=== PATIENT | female | born 1975 | race Hispanic/Latino ===

== ENCOUNTER 2025-03-13 22:14 | Emergency (ER) | payer SELFPAY ==
[2025-03-13] VITALS (8 sets, daily range): BP systolic 118–141; BP diastolic 84–88; PULSE 94–101; RESP 15–21; O2SAT 95–97
--- NOTE | ~2025-03-13 | CT_ITS ---
CT brain wo con Ordering provider: Aleksandra Chirinos MD History: 49 years Female with . weakness . Comparison: None. Technique: CT of the head without contrast. Radiation reduction technique utilized. The dose-length p roduct was 681 mGy-cm. FINDINGS: BRAIN PARENCHYMA AND CSF SPACES: No midline shift, mass effect or hemorrhage. The brain parenchyma a nd CSF spaces are otherwise normal. VISUALIZED PARANASAL SINUSES: Left maxillary sinus disease. MASTOIDS: Well aerated. BONES: The bones appear intact. SOFT TISSUES: Visualized nasopharynx is normal. Superficial soft tissues are normal. IMPRESSION: No acute intracranial findings. Reviewed, dictated and finalized at location A.
--- NOTE | ~2025-03-13 | XR_ITS ---
XR chest 1V portable Ordering provider: Aleksandra Chirinos MD History: 49 years Female with . chest pain WEAKNESS SOB . Comparison: None. FINDINGS: MEDIASTINUM: The cardiac silhouette is not enlarged. LUNGS: No effusions or pneumothorax. Opacification the lung bases more on the left side suggestive of pneumonia. OTHER: No free air under the diaphragm. IMPRESSION: Bibasilar pneumonia more on the left side. Reviewed, dictated and finalized at location A.
--- NOTE | 2025-03-13 22:37 | ECG_ITS ---
Test Date: 2025-03-13 22:41:21 Measurements Intervals [place] Rate: 95 P: 43 UT: 148 QRS: 23 QRSD: 84 T: 3 QT: 345 QTc: 434 Interpretive Statements SINUS RHYTHM DELAYED PRECORDIAL R/S TRANSITION BORDERLINE ST-T WAVE ABNORMALITY- ANT/INF LEADS BORDERLINE ECG No previous ECG available for comparison Electronically Signed On 03-14-2025 06:01:47 CDT by Ever Lee D.O.
[2025-03-13 23:13] LABS: Basophils Absolute Auto 0.1 K/mm3 (0.0-0.1); Basophils Percent Auto 0.4 % (0.2-1.2); Hematocrit 44.1 % (37.0-47.0); Hemoglobin 14.9 g/dL (12.0-15.0); Immature Granulocyte Absolute 0.05 K/mm3 (0.00-0.031); Immature Granulocyte Percent A 0.4 % (0-0.5); Lymphocytes Absolute Auto 1.32 K/mm3 (0.9-3.2); Lymphocytes Percent Auto 9.6 % (18.3-44.2); Mean Corpuscular HGB Conc 33.8 g/dl (32-36); Mean Corpuscular Hemoglobin 28.7 pg (26-34); Mean Platelet Volume 9.7 fl (7.4-10.4); Monocytes Absolute Auto 0.3 K/mm3 (0.1-0.6); Monocytes Percent Auto 2.2 % (2.6-8.5); Neutrophils Absolute Auto 12.1 K/mm3 (1.3-6.7); Neutrophils Percent Auto 87.4 % (45.5-73.1); Platelet Count Result 388 k/mm3 (150-375); Red Blood Count 5.19 M/mm3 (4.2-5.4); Red Cell Distribution Width 13.2 % (11.5-14.5); White Blood Count 13.8 K/mm3 (4.5-10.0)
[2025-03-13 23:21] LABS: Creatine Kinase 41 U/L (30-135); Magnesium 1.7 mg/dL (1.6-2.3)
[2025-03-13 23:22] LABS: Alanine Aminotransferase 42 U/L (6-35); Albumin Level 4.4 g/dL (3.5-5.1); Alkaline Phosphatase 133 U/L (38-126); Anion Gap 14 mmol/L (4-12); Aspartate Amino Transferase 30 U/L (14-36); Bilirubin,Total 0.5 mg/dL (0.2-1.3); Blood Urea Nitrogen 25 mg/dL (7-17); Calcium 9.6 mg/dL (8.4-10.2); Carbon Dioxide 20 mmol/L (22-30); Chloride 98 mmol/L (98-107); Estimated CRCL calculation 64 ml/min; Estimated Glomerular Filt Rate > 60; Glucose 444 mg/dL (65-110); Lipase 46 U/L (23-300); Potassium 4.8 mmol/L (3.4-5.0); Sodium 132 mmol/L (137-145)
[2025-03-13 23:25] LABS: Partial Thromboplastin Time 21.8 Seconds (22.3-36.8); Prothrombin Time 13.4 Seconds (11.1-14.7)
[2025-03-13] MEDS: ASPIRIN 81 MG CHEWABLE TABLET 324 MG PO (23:27)
[2025-03-13 23:33] LABS: Troponin I < 0.012 ng/mL (0.000-0.034)
[2025-03-13] MEDS: SODIUM CHLORIDE 0.9% IV 1,000 ML 999 ML IV CONT (23:53)
[2025-03-14] VITALS (10 sets, daily range): BP systolic 106–125; BP diastolic 71–85; PULSE 82–91; RESP 15–19; O2SAT 95–99
--- NOTE | 2025-03-14 00:31 | ED_ITS ---
HPI - Chest Pain General Chief Complaint: Chest Pain Stated Complaint: Chest pain, shortness of breath Time Seen by Provider: 03/13/25 22:49 History of Present Illness HPI narrative: Patient is a 49-year-old female who presents to the emergency department this evening with multiple complaints. Patient states that for the past few days she has been having chest pain and shortness of breath specially with inspiration. Patient states that she also has chronic abdominal pain that is intermittent which has been bothering her for the past month. States that she does struggle with constipation but admits that she had a bowel movement today. Currently, patient is denying any abdominal pain at this time. Patient states that earlier today she was having a difficulty time breathing and during that same episode she had bilateral hand cramps and numbness. Since then, this has improved. Patient is also complaining of a headache, denies any history of migraine headaches, rates it mild to moderate. She feels generally weak otherwise denies any additional symptoms including any recent illness, fevers or chills. Related Data Allergies Allergy/AdvReac Type Severity Reaction Status Date / Time No Known Allergies Allergy Verified 03/13/25 22:21 Review of Systems 2 Review of Systems: All systems are reviewed and are negative unless stated otherwise in the HPI. Exam 2 Narrative: General: Alert, awake, afebrile, in no acute distress. HEENT: PERRL, no rhinorrhea, no post nasal drip, oropharynx clear. Neck: Trachea midline, no JVD, no lymphadenopathy. Cardiovascular: Regular rate and rhythm, no murmurs, rubs or gallops, no peripheral edema. Respiratory: Clear to auscultation bilaterally, no tachypnea, no wheezing, no rhonchi, no rubs, no respiratory distress. Abdomen: Soft, nontender, nondistended, no rebound, no guarding, no peritoneal signs. Musculoskeletal: No joint swelling or deformity, normal muscle tone. Skin: No rashes or petechia, no signs of infection. Psychiatric: Alert and oriented, normal behavior and judgment for situation. Neurological: Alert and oriented to person, place, and time. Follows all commands. No focal deficits, 5/5 motor strength in the bilateral upper and lower extremity, sensation intact in the bilateral upper and lower extremity, cranial nerves 2-12 grossly intact, speech is clear and fluent. Course Vital Signs Vital signs: Vital Signs Pulse Rate 101 H 04/16/25 22:30 Respiratory Rate 15 03/13/25 22:30 Blood Pressure 141/88 H 03/13/25 22:30 Pulse Oximetry 97 03/13/25 22:30 Oxygen Delivery Room Air 03/13/25 22:30 Pulse Rate 101 H 03/13/25 22:30 Respiratory Rate 15 03/13/25 22:30 Blood Pressure 141/88 H 03/13/25 22:30 Pulse Oximetry 96 03/13/25 22:41 Oxygen Delivery Room Air 03/13/25 22:41 MDM - Chest Pain MDM Narrative Medical decision making narrative: The patient was evaluated by myself in the emergency department. History is obtained from patient who is an independent historian and physical exam was performed. External medical records were reviewed at this time. IV was established and pertinent tests were ordered. Patient was administered 1 L IV fluid bolus with normal saline and 4 mg IV Zofran for nausea. EKG was obtained which revealed sinus rhythm rate of 95 beats per minute, no evidence of acute ischemia. EKG was independently interpreted by me and is currently pending official cardiology read. Laboratory results obtained revealing a leukocytosis of 13.8, glucose 444, otherwise unremarkable. Imaging studies obtained included CXR which was independently interpreted by me revealin. Bibasilar pneumonia more on the left side. Patient was informed of these findings at bedside and that she will need to be started on an oral antibiotic at home to take for this pneumonia. Her 1st dose of antibiotics was administered in the emergency department with 1 g of Rocephin 500 mg of IV azithromycin. Differential diagnosis considerations include pneumonia, acute coronary syndrome acute viral syndrome, gastroenteritis, constipation, peptic ulcer disease. Comorbidities impacting this visit include none. I have evaluated and discussed social determinants of health with the patient that could potentially impact subsequent diagnosis and treatment plans. On repeat assessment of the patient, reevaluation revealed that the patient is doing well and is in no acute distress. Patient symptoms have improved since she arrived to our emergency department. Repeat vital signs were all reviewed and noted to be stable. Differential diagnosis and treatment plan were discussed with the patient at bedside. Patient agrees with discussion and after shared medical decision making agrees with discharge. All questions were answered to the patient's satisfaction. Patient will follow up with her PCP in 3-5 days. Per patient's request, she was provided with a GI referral and instructed to call to set up a follow-up appointment regarding her chronic abdominal pain. Scripts for doxycycline and Augmentin were sent to patient's pharmacy to take as prescribed for her pneumonia. Patient was provided with strict return precautions and instructed to return to the emergency department if any new or worsening symptoms develop. The patient was discharged in stable condition. Lab Data 03/13/25 22:58 03/13/25 22:58 Labs: Lab Results 03/13/25 Range/Units 22:58 WBC 13.8 H (4.5-10.0) K/mm3 RBC 5.19 (4.2-5.4) M/mm3 Hgb 14.9 (12.0-15.0) g/dL Hct 44.1 (37.0-47.0) % MCV 85.0 (80-100) fl MCH 28.7 (26-34) pg MCHC 33.8 (32-36) g/dl RDW 13.2 (11.5-14.5) % Plt Count 388 H (150-375) k/mm3 MPV 9.7 (7.4-10.4) fl Immature Gran % (Auto) 0.4 (0-0.5) % Neut % (Auto) 87.4 H (45.5-73.1) % Lymph % (Auto) 9.6 L (18.3-44.2) % [place] % (Auto) 2.2 L (2.6-8.5) % Eos % (Auto) 0.0 (0-4.4) % Baso % (Auto) 0.4 (0.2-1.2) % Lymph # (Auto) 1.32 (0.9-3.2) K/mm3 [place] # (Auto) 0.3 (0.1-0.6) K/mm3 Eos # (Auto) 0.0 (0-0.3) K/mm3 Baso # (Auto) 0.1 (0.0-0.1) K/mm3 Abs Immat Gran (auto) 0.05 H (0.00-0.031) K/mm3 Absolute Neuts (auto) 12.1 H (1.3-6.7) K/mm3 Absolute Nucleated RBC 0.000 (0.0-0.012) K/mm3 Nucleated RBC % 0.0 (0.0-0.2) % PT 13.4 (11.1-14.7) Seconds INR 1.0 APTT 21.8 L (22.3-36.8) Seconds Sodium 132 L (137-145) mmol/L Potassium 4.8 (3.4-5.0) mmol/L Chloride 98 (98-107) mmol/L Carbon Dioxide 20 L (22-30) mmol/L Anion Gap 14 H (4-12) mmol/L BUN 25 H (7-17) mg/dL Creatinine 0.89 (0.7-1.0) mg/dL Estim Creat Clear Calc 64 ml/min Estimated GFR > 60 (59 - ) Glucose 444 H (65-110) mg/dL Calcium 9.6 (8.4-10.2) mg/dL Magnesium 1.7 (1.6-2.3) mg/dL Total Bilirubin 0.5 (0.2-1.3) mg/dL AST 30 (14-36) U/L ALT 42 H (6-35) U/L Alkaline Phosphatase 133 H (38-126) U/L Total Creatine Kinase 41 (30-135) U/L Troponin I < 0.012 (0.000-0.034) ng/mL Total Protein 8.0 (6.3-8.2) g/dL Albumin 4.4 (3.5-5.1) g/dL Lipase 46 (23-300) U/L Discharge Plan Discharge Clinical Impression: Atypical chest pain, Pneumonia Patient Disposition: Home Condition: Improved Instructions: Antibiotic Form, Chest Pain (ED), Bacterial Pneumonia (DC) Additional Instructions: Please follow-up with your family doctor within the next 3-5 days. Return emergency department if any new or worsening symptoms develop. Take the prescribed antibiotic as instructed for your pneumonia. You were provided with a GI referral and instructed to call to set up a follow-up appointment regarding your chronic abdominal pain. Patient Language: Armenian Prescriptions: New amoxicillin-pot clavulanate 875-125 mg tablet 1 tablet PO Q12H 5 Days Qty: 10 0RF doxycycline hyclate 100 mg tablet 100 mg PO BID 5 Days Qty: 10 0RF Follow-up/Referrals: PHYSICIAN,SAMPLE DISPLAY PREPARER [Primary Care Provider] - Giovany Berger MD [Physician] - 3 Days Time of Disposition: 00:30
[2025-03-14] MEDS: ONDANSETRON INJ 4 MG/2 ML VIAL IV PUSH (00:46)
[2025-03-14] MEDS: AZITHROMYCIN 500 MG/NS 250 ML 500 MG/250 ML BAG 250 MG IVPB (01:11)
== END 2025-03-14 02:35 | disposition home or self-care (01) ==
PROVIDERS: Emergency Provider Emergency Medicine
DX: J18.9 Pneumonia, unspecified organism (principal); R07.89 Other chest pain; R94.31 Abnormal electrocardiogram [ECG] [EKG]
CPT/HCPCS: 36415; 70450; 71045; 80053; 82550; 83690; 83735; 84484; 85025; 85610; 85730; 93005; 96361; 96365; 96367; 96375; 99284; A9270; J0456; J0696; J2405; J7030